=== PATIENT | female | born 1985 ===

== ENCOUNTER → 2020-01-03 | Outpatient (CLI) | payer OTHER, BC ==
[~2020-01-03] VITALS: Ht 162.6 cm; Wt 73.6 kg
[~2020-01-03] MED LIST: FERROUSGLUC256MG; MOTRIN 800800 MG/TAB PO; PERCOCET 325 MG1 TA2 PO; PRENATAL TABLET PO
--- NOTE | 2020-01-03 12:40 | NUR ---
Patient ambulatory to LR2 with spouse, changed into gown, FHR/TOCO monitors placed and explained. Patient here for external version. Patient denies any regular contractions, leaking of fluid/vaginal bleeding, decreased movement. Plan of care discussed. 1250: IV started in left hand, blood obtained, flushed. Assessment completed and consents signed. 1336: Patient off monitor to void. 1340: Dr. Wellington at bedside and SONO done and breech position confirmed. Physician orders Terb. to be given. 1344 : Terb. 0.125mg given IV and patient tolerates well. Dr. Wellington begins version at this time. Patients tolerating well. 1350: Version unsuccessful and Dr. Wellington discusses plan. 1352: Monitor back on and adjusted. Plan of care discussed and patient verbalizes understanding. 1456: Patient off monitor and discharge instructions given and papers signed. 1305: Patient ambulates off unit with spouse.
[2020-01-03 13:00] VITALS: BP 103/62; PULSE 80; TEMP 97.6
[2020-01-03 13:30] VITALS: BP 101/60; PULSE 80
[2020-01-03 14:00] VITALS: BP 111/65; PULSE 93
[2020-01-03 14:30] VITALS: BP 115/58; PULSE 81
[2020-01-03 14:56] VITALS: BP 108/56; PULSE 77; TEMP 98.7
== END ==
LOC: LDRO 08:00 → EDSTATUS 08:31 → LDR 08:32 → EDSTATUS 08:33 → LDRO 08:33 → LDR 01-22 08:32 → EDSTATUS 01-22 08:34
DX: O32.1XX0 Maternal care for breech presentation, not applicable or unspecified (principal); Z3A.36 36 weeks gestation of pregnancy
CPT/HCPCS: J3105

== ENCOUNTER 2020-01-22 05:48 | Inpatient (IN) | payer BC ==
[~2020-01-22] VITALS: Ht 162.6 cm; Wt 75.0 kg
[2020-01-22] VITALS (19 sets, daily range): BP systolic 71–125; BP diastolic 43–72; PULSE 61–87; TEMP 97.7–97.9
[~2020-01-22 05:48] MED LIST changes: -MOTRIN 800800 MG/TAB PO; -PERCOCET 325 MG1 TA2 PO
[2020-01-22 07:03] LABS: BASO % 0.3 % (0.0-2.0); EOS # 0.2 (0.0-0.7); GRAN # 4.9 (1.4-6.5); GRAN % 66.2 % (42.2-75.2); HEMOGLOBIN 10.2 g/dl (12.5-16.0); LYMPH # 1.5 (1.2-3.4); LYMPH % 20.8 % (20.0-51.0); MEAN CELL VOLUME 71 fl (80.0-100.0); MEAN CORPUSCULAR HEMOGLOBIN 22 pg (27.0-31.0); MEAN CORPUSCULAR HGB CONC 31 g/dl (33.0-37.0); MONO # 0.7 (0.1-0.6); MONO % 9.9 % (1.7-9.3); PLATELET COUNT 133 K/mm3 (130-400); RED BLOOD COUNT 4.61 M/mm3 (4.10-5.30); REDCELL DISTRIBUTION WIDTH-CV 15.6 % (11.5-14.5)
[2020-01-22 07:06] LABS: HEMATOCRIT 32.6 % (37.0-47.0)
--- NOTE | 2020-01-22 09:00 | NUR ---
0900- Chux and peripad changed prior to leaving PACU. Constant trickle of bright red blood noted. Freeflow with massage. Small, grape sized clots noted with massage.
--- NOTE | 2020-01-22 09:45 | NUR ---
0945- Bleeding continues to be moderate with small clots noted with massage. Fundus firm. Roverto and ekaterina vale.
[2020-01-23 03:30] VITALS: BP 99/52; PULSE 69; TEMP 97.8
[2020-01-23 07:45] VITALS: BP 95/55; PULSE 70; TEMP 98
[2020-01-23] MEDS ORDERED: MOTRIN 800800 MG/TAB PO (12:02)
[2020-01-23] MEDS ORDERED: PERCOCET 325 MG1 TA2 PO (12:02)
[2020-01-23 17:00] VITALS: BP 98/57; PULSE 76; TEMP 97.6
[2020-01-23 20:04] VITALS: BP 99/61; PULSE 78; TEMP 98.4
[2020-01-24 08:50] VITALS: BP 99/62; PULSE 72; TEMP 98
== END 2020-01-24 12:05 | disposition home or self-care (01) | DRG 788 ==
LOC: OB 05:48 → LDR 08:36 → OB 01-24 12:05
PROVIDERS: ADMIT Obstetrics & Gynecology
PROC: 10D00Z1 Extraction of Products of Conception, Low, Open Approach (ICD-10-PCS; principal; 2020-01-22)
DX: O32.1XX0 Maternal care for breech presentation, not applicable or unspecified (principal); O99.02 Anemia complicating childbirth; D64.9 Anemia, unspecified; O34.03 Maternal care for unspecified congenital malformation of uterus, third trimester; Q51.3 Bicornate uterus; Z3A.39 39 weeks gestation of pregnancy; Z37.0 Single live birth
CPT/HCPCS: J0690; J1885; J2175; J2210; J2370; J2405; J2590; J3010; J7120